=== PATIENT | female | born 1960 | race Caucasian/White ===

== ENCOUNTER 2018-09-23 06:07 | Day surgery (SDC) | payer OTHER ==
[~2018-09-23] VITALS: Ht 162.6 cm; Wt 90.9 kg
[~2018-09-23 06:07] MED LIST: CALCIUM + D3 PO; HYDR12.58 PO; LEVO125T7 PO; SIMV40TA3 PO
[2018-09-23 06:46] VITALS: Ht 162.6 cm; Wt 90.9 kg
[2018-09-23] MEDS ORDERED: EPHEDrine 25 MG/5 ML SYG ONE (07:07)
[2018-09-23] MEDS ORDERED: LIDOCAINE 2% (SDV) 5 ML INJ ONE (07:07)
[2018-09-23] MEDS ORDERED: PROPOFOL 40 ML ONE (07:07)
[2018-09-23] MEDS ORDERED: SUCCINYLCHOLINE CHLORIDE 100 MG/5 ML SYG IV ONE (07:07)
[2018-09-23] MEDS ORDERED: TIROSINT (07:13)
[2018-09-23] MEDS ORDERED: LOSARTAN (07:13)
--- NOTE | 2018-09-23 07:21 | PREAC ---
Date/Time of Note Date/Time of Note DATE: 09/23/18 TIME: 07:16 Anesthesia Eval and Record Evaluation Time Pre-Procedure Interview DATE: 09/23/18 TIME: 07:16 Age 58 Sex female NPO: 8 hrs Preoperative diagnosis Occult Blood in Stool Planned procedure EGD and Colonoscopy Past Medical History Past Medical History: Includes Cardio: HTN, Dyslipidemia Endo: Hypothyroid Hepatic: Other (Fatty Liver) GI: Obesity Surgery & Anesthesia Issues No known issue Meds Anticoagulation: No Beta Jeanie within 24 hr: No Reason Beta Jeanie not given: Pt. not on B-Jeanie Reported Medications [Tirosint] No Conflict Check 09/23/18 [Losartan] No Conflict Check 09/23/18 [Calcium + D3] No Conflict Check, 1 TAB PO BID 05/13/15 Hydrochlorothiazide* (Hydrochlorothiazide*) 12.5 Mg Tablet, 12.5 MG PO DAILY, TAB 05/13/15 Simvastatin (Simvastatin) 40 Mg Tablet, 40 MG PO HS, TAB 05/13/15 Levothyroxine Sodium* (Levothyroxine Sodium*) 125 Mcg Tablet, 125 MCG PO AC BREAKFAST, TAB 05/13/15 Meds reviewed: Yes Allergies Coded Allergies: No Known Allergy (Unverified , 09/23/18) Allergies Reviewed: Yes Labs/Studies Labs Reviewed: Other (not indicated) test: N/A Pre-procedure Exam Airway: Adequate mouth opening, Adequate thyromental dist Mallampati: Mallampati III Teeth: Abnormal (lowers chipped) Lung: Normal Heart: Normal ASA Physical Status ASA physical status: 2 Emergency: None Planned Anesthetic General/MAC: MAC Pre-operative Attestations Prior to commencing anesthesia and surgery, the patient was re-evaluated, there was verification of: *The patient's identity *The results of appropriate recent lab work and preoperative vital signs *The above evaluation not changing prior to induction *Anesthetic plan, risk benefits, alternative and complications discussed with patient/family; questions answered; patient/family understands, accepts and wishes to proceed. Safety Representative used (Jesse #[id number]) VIOLET HOLDEN CRNA Sep 23, 2018 07:21
[2018-09-23 07:39] VITALS: BP 124/67; PULSE 53; RESP 21
[2018-09-23] MEDS ORDERED: GLYCOPYRROLATE 0.4 MG INJ ONE (07:44)
--- NOTE | 2018-09-23 08:22 | PAC ---
Date/Time of Note Date/Time of Note DATE: 09/23/18 TIME: 08:21 Post-Anesthesia Notes Post-Anesthesia Note Last documented vital signs BP 120/65, HR 51, RR 25, SpO2 99% Vital Signs Date Temp Pulse Resp B/P (MAP) Pulse Ox O2 O2 Flow FiO2 Time Delivery Rate 09/23/18 97.0 53 21 124/67 97 Room Air 07:39 (86) Activity: WNL Respiratory function: WNL Cardiovascular function: WNL Mental status: Baseline Pain reasonably controlled: Yes Hydration appropriate: Yes Nausea/Vomiting absent: Yes VIOLET HOLDEN CRNA Sep 23, 2018 08:22
[2018-09-23 09:00] VITALS: BP 139/82; RESP 20
== END 2018-09-23 11:58 | disposition home or self-care (01) ==
LOC: GIL 06:07
PROVIDERS: ATTEND Internal Medicine Gastroenterology
DX: K92.1 Melena (principal); K64.8 Other hemorrhoids; D12.7 Benign neoplasm of rectosigmoid junction
CPT/HCPCS: 45380; Z7610